=== PATIENT | female | born 1935 | race Caucasian/White ===

== ENCOUNTER → 2017-07-28 | Outpatient (CLI) | payer OTHER ==
[~2017-07-28] MED LIST: ALBINS INH; ALBUAER2 INH; ASPEC325 PO; BENEFIBER PO; BENICAR PO; FENO160T PO; FRS/40 PO; GLCSC500400 PO; MULT-506 PO; OMEG10007 PO; OXYSR10 PO; RANI150T3 PO; RXC5 PO; SYN50 PO; VERA120T2 PO; [UNRECOGNIZED DRUG - OTHER]
--- NOTE | 2017-07-29 07:58 | MAMMOGRAPHY REPORT ---
BILATERAL DIGITAL SCREENING MAMMOGRAM WITH CAD: 07/28/2017 CLINICAL HISTORY: Routine screening examination. TECHNIQUE: Bilateral CC and MLO views were obtained. Current study was also evaluated with a Compute r Aided Detection (CAD) system. COMPARISON: Comparison is made to exams dated: 07/21/2016 mammogram, 07/12/2015 mammogram, 07/07/2014 ma mmogram, 07/18/2013 mammogram, 07/05/2013 mammogram, and 06/29/2012 mammogram - [facility]. BREAST COMPOSITION: There are scattered areas of fibroglandular density in both breasts. FINDINGS: A linear scar marker overlies the lateral left breast. There are scattered benign coarse c alcifications throughout the right breast. No suspicious mass, architectural distortion or cluster o f suspicious microcalcifications is seen. IMPRESSION: ACR BI-RADS CATEGORY 1: NEGATIVE There is no mammographic evidence of malignancy. A 1 year screening mammogram is recommended. The pa tient will receive written notification of the results. Approximately 10% of breast cancers are not detected with mammography. A negative mammographic report should not delay biopsy if a clinically suggestive mass is present. Moni Baird M.D. ay/:07/28/2017 15:38:38 Library Information Technician: Mona HORAN(Rakesh)(Mike), [facility] letter sent: Normal 1/2 BI-RADS Code: ACR BI-RADS Category 1: Negative
== END | disposition home or self-care (01) ==
LOC: C.MAMM 12:56
PROVIDERS: ATTEND Family Medicine
DX: Z12.31 Encounter for screening mammogram for malignant neoplasm of breast (principal)

== ENCOUNTER → 2017-12-14 | Outpatient (CLI) | payer OTHER ==
[2017-12-14 12:32] LABS: BASO ABS # 0.03 K/uL (0-0.2); EOS % 8.5 %; EOS ABS # 0.26 K/uL (0-0.5); HEMATOCRIT 43.4 % (37-47); HEMOGLOBIN 14.4 g/dL (12.0-16.0); LYMPH % 26.5 %; LYMPH ABS # 0.81 K/uL (1.2-3.4); MEAN CORPUSCULAR HEMOGLOBIN 30.2 pg (25-34); MEAN CORPUSCULAR HGB CONC 33.2 g/dl (32-36); MEAN PLATELET VOLUME 10.9 fL (7.4-10.4); MONO % 11.8 %; MONO ABS # 0.36 K/uL (0.11-0.59); NEUT % 52.2 %; PLATELET COUNT 170 K/uL (130-400); RED CELL DISTRIBUTION WIDTH CV 13.9 % (11.5-14.5); RED CELL DISTRIBUTION WIDTH SD 46.2 fL (36.4-46.3); WHITE BLOOD COUNT 3.06 K/uL (4.8-10.8)
[2017-12-14 13:12] LABS: ALBUMIN 3.5 gm/dl (3.4-5.0); ALKALINE PHOSPHATASE 57 U/L (45-117); ALT/SGPT 25 U/L (12-78); AST/SGOT 29 U/L (15-37); BLOOD UREA NITROGEN 32 mg/dl (7-18); CALCIUM 9.5 mg/dl (8.5-10.1); CARBON DIOXIDE 28 mmol/L (21-32); CHOLESTEROL 157 mg/dl (0-200); CREATININE 1.41 mg/dl (0.60-1.20); GLUCOSE 99 mg/dl (70-99); POTASSIUM 4.3 mmol/L (3.5-5.1); SODIUM 141 mmol/L (136-145)
[2017-12-14 13:17] LABS: HEMOGLOBIN A1C 5.2 % (4.5-5.6)
[2017-12-14 13:23] LABS: LDL CHOLESTEROL CALCULATED 88 mg/dl; TOTAL PROTEIN 6.4 gm/dl (6.4-8.2)
== END | disposition home or self-care (01) ==
LOC: C.LABMFLN 09:41
PROVIDERS: ATTEND Family Medicine
DX: E03.9 Hypothyroidism, unspecified (principal); N18.3 Chronic kidney disease, stage 3 (moderate); I12.9 Hypertensive chronic kidney disease with stage 1 through stage 4 chronic kidney disease, or unspecified chronic kidney disease

== ENCOUNTER → 2017-12-22 | Outpatient (CLI) | payer OTHER ==
[2017-12-22 18:00] LABS: BASO % 0.8 %; BASO ABS # 0.03 K/uL (0-0.2); EOS % 5.6 %; HEMATOCRIT 45.2 % (37-47); HEMOGLOBIN 14.2 g/dL (12.0-16.0); LYMPH % 21.7 %; LYMPH ABS # 0.77 K/uL (1.2-3.4); MEAN CELL VOLUME 92.4 fL (80-100); MEAN CORPUSCULAR HGB CONC 31.4 g/dl (32-36); MEAN PLATELET VOLUME 11.3 fL (7.4-10.4); MONO ABS # 0.46 K/uL (0.11-0.59); NEUT % 58.9 %; NEUT ABS # 2.09 K/uL (1.4-6.5); PLATELET COUNT 180 K/uL (130-400); RED CELL DISTRIBUTION WIDTH SD 47.2 fL (36.4-46.3); WHITE BLOOD COUNT 3.55 K/uL (4.8-10.8)
== END | disposition home or self-care (01) ==
LOC: C.LABMFLN 11:44
PROVIDERS: ATTEND Family Medicine
DX: N18.3 Chronic kidney disease, stage 3 (moderate) (principal)